=== PATIENT | male | born 1960 | race Caucasian/White ===

== ENCOUNTER → 2023-03-06 11:33 | Outpatient (CLI) | payer OTHER, SELFPAY ==
--- NOTE | 2023-03-06 11:36 | DI.MRI.S_ITS ---
PROCEDURE: MR PELIS WO/W CON INDICATIONS: elevated psa TECHNIQUE: Coronal HASTE, axial T1 FSE with fat saturation, 3-plane nonbreath-hold T2 FSE. After the administration of contrast, dynamic axial, delayed axial and coronal VIBE or 2-D FLASH with fat saturation through the pelvis. Restricted diffusion weighted imaging and ADC. 20 cc ProHance IV contrast. COMPARISON: None. FINDINGS: Image quality: Diffusion weighted and dynamic contrast enhanced images are diagnostic. Prostate: Gland size is 4.6 x 4.5 x 4.4 cm; ellipsoid gland volume is 47 mL. No significant foci of intrinsic T1 hyperintensity to suggest hemorrhage. Multiple BPH nodules. Lesion size(s): Lesion 1: 1 x 0.8 cm, (09/18) Lesion location(s) (sector): Lesion 1: Right apex peripheral zone Lesion description: Lesion 1: Oval T2 weighted imaging (T2WI) morphology score: Lesion 1: 4 Diffusion weighted imaging (DWI) morphology score: Lesion 1: 4 Dynamic contrast enhancement (DCE): Lesion 1: Present Lesion PI-RADS score: Lesion 1: PI-RADS 4 Genitourinary system: Bladder wall thickness is normal. Distal ureters are non distended. Bowel and peritoneum: No pathologic free pelvic fluid. Inferior colon and small bowel loops are normal in caliber. Nodes and vessels: No pelvic or inguinal adenopathy by size criteria. Iliac vessels are normal in caliber. Soft tissues: Fat containing left inguinal hernia Bones: Marrow demonstrates normal overall signal, without lesions to suggest metastases. IMPRESSION: 1. Prominent prostate gland with multiple BPH nodules. 2. Right apex peripheral zone observation measuring 1 cm. PI-RADS 4. 3. No enlarged lymph nodes. Dictated by: Arnol Aguilar M.D. on 03/06/2023 at 19:01 Approved by: Arnol Aguilar M.D. on 03/06/2023 at 19:09
== END ==
PROVIDERS: PCP Family Medicine; Referring Provider Specialist; Visit Provider Specialist
DX: R97.20 Elevated prostate specific antigen [PSA] (principal); N40.1 Benign prostatic hyperplasia with lower urinary tract symptoms; N13.8 Other obstructive and reflux uropathy
CPT/HCPCS: 36415; 72197; 84153; 84154

== ENCOUNTER → 2023-03-06 13:10 | Outpatient (CLI) | payer OTHER, SELFPAY ==
[2023-03-08 09:10] LABS: PSA Free % 9.8 % (.); PSA, Total 5.7 ng/mL (0.0-4.0)
== END ==
PROVIDERS: PCP Family Medicine; Referring Provider Specialist; Visit Provider Specialist
DX: R97.20 Elevated prostate specific antigen [PSA] (principal)
CPT/HCPCS: 36415; 84153; 84154

== ENCOUNTER → 2023-08-07 15:21 | Outpatient (CLI) | payer OTHER, SELFPAY ==
[2023-08-10 08:16] LABS: PSA Free % 8.9 % (.); PSA, Total 7.6 ng/mL (0.0-4.0)
== END ==
PROVIDERS: PCP Family Medicine; Referring Provider Specialist; Visit Provider Specialist
DX: R97.20 Elevated prostate specific antigen [PSA] (principal)
CPT/HCPCS: 36415; 84153; 84154

== ENCOUNTER → 2023-08-29 10:32 | Outpatient (CLI) | payer OTHER, SELFPAY ==
--- NOTE | 2023-08-29 10:34 | DI.MRI.S_ITS ---
PROCEDURE: MR PELIS WO/W CON INDICATIONS: Elevated PSA TECHNIQUE: Coronal HASTE, axial T1 FSE with fat saturation, 3-plane nonbreath-hold T2 FSE. After the administration of contrast, dynamic axial, delayed axial and coronal VIBE or 2-D FLASH with fat saturation through the pelvis. Diffusion weighted imaging and ADC was performed. COMPARISON: [facility], MR, MR PELVIS WO/W CON, 03/06/2023, 12:14. FINDINGS: Image quality: Diffusion weighted and dynamic contrast enhanced images are diagnostic. Prostate: Gland size is 3.6 x 4.7 by 5.0 cm; ellipsoid gland volume is 44 mL. Using a PSA of 7.6, the PSA density is 0.17 Lesion 1: Location: Right apex posterior peripheral zone indistinct T2 hypointensity is redemonstrated. Size: 1.0 x 0.8 x 0.7 cm, seen on axial series image 17 and coronal series image 16 T2W signal: Mildly hypointense DWI signal: Markedly hyperintense. ADC signal: Moderately hypointense. Enhancement: Yes Extracapsular extension: Abuts but does not distort capsular contour. PI-RADS score: Four Genitourinary system: Bladder wall thickness is normal. Distal ureters are non distended. Bowel and peritoneum: No pathologic free pelvic fluid. Inferior colon and small bowel loops are normal in caliber. Nodes and vessels: No pelvic or inguinal adenopathy by size criteria. Iliac vessels are normal in caliber. Soft tissues: No inguinal hernias. Bones: Marrow demonstrates normal overall signal, without lesions to suggest metastases. IMPRESSION: Stable size and morphology of a PI-RADS four 1 cm lesion at the right apex peripheral zone. Stable prostate gland size, nearly within normal limits. No pelvic lymphadenopathy by size criteria. No aggressive osseous abnormality. Dictated by: Camille Burciaga M.D. on 08/29/2023 at 21:40 Approved by: Camille Burciaga M.D. on 08/29/2023 at 21:53
== END ==
PROVIDERS: PCP Family Medicine; Referring Provider Specialist; Visit Provider Specialist
DX: N40.2 Nodular prostate without lower urinary tract symptoms (principal); R97.20 Elevated prostate specific antigen [PSA]
CPT/HCPCS: 72197; A9579